=== PATIENT | female | born 1980 | race Caucasian/White ===

== ENCOUNTER 2022-08-31 18:29 | Inpatient (IN) | payer BC ==
[~2022-08-31] VITALS: Ht 160 cm; Wt 72.6 kg
[~2022-08-31 18:29] MED LIST: FENTANYL CITRATE/PF 100MCG/2 ML INJ ONE; MIDAZOLAM HCL 2 MG/2 ML VIAL ONE
[2022-08-31] MEDS ORDERED: POVIDONE IODINE 0.05% 0.05 % ML PO ONE (18:45)
[2022-08-31] MEDS ORDERED: LIDOCAINE HCL 2% LOCAL INJ 5 ML SDV VIAL INJ ONE (18:45)
[2022-08-31] MEDS ORDERED: PROPOFOL IV EMULSION 10 MG/ML 20 ML VIAL ONE (18:45)
[2022-08-31 21:28] VITALS: BP 151/86
[2022-08-31 22:00] VITALS: BP 151/86
[2022-09-01] VITALS (9 sets, daily range): BP systolic 130–149; BP diastolic 75–82
[2022-09-01] MEDS ORDERED: ACETAMINOPHEN-1 EAC4 (02:10)
[2022-09-01] MEDS ORDERED: PANTOPRAZOLE SO40 MG (02:10)
[2022-09-01] MEDS ORDERED: ZOLOFT100 MG PO (02:10)
[2022-09-01] MEDS ORDERED: VALTREX500 MG PO (02:10)
[2022-09-01] MEDS ORDERED: ALPRAZOLAM XR1 MG (02:10)
[2022-09-01] MEDS ORDERED: AMBIEN10 MG PO (02:10)
[2022-09-01] MEDS ORDERED: LYRICA150 MG PO (02:10)
[2022-09-01] MEDS: SODIUM CHLORIDE 0.9% 1000ML 1,000 ML IV SCH ×4 (04:01→20:16)
[2022-09-01 05:34] LABS: BASOPHILS # (AUTO) 0.1 (0.0-0.1); BASOPHILS % 1.4 % (0.0-1.0); EOSINOPHILS # (AUTO) 0.2 (0.0-0.4); EOSINOPHILS % 4.2 % (0.0-6.0); HEMOGLOBIN 9.1 g/dL (12.0-16.0); LYMPHOCYTES # (AUTO) 1.4 (1.0-3.2); LYMPHOCYTES % 28.4 % (18.0-39.1); MEAN CORPUSCULAR HEMOGLOBIN 26.4 pg (28-32); MEAN CORPUSCULAR HGB CONC 30.3 g/dL (31-35); MONOCYTES # (AUTO) 0.5 (0.2-0.8); MONOCYTES % 10.5 % (4.4-11.3); NEUTROPHILS # (AUTO) 2.8 (2.1-6.9); NEUTROPHILS % 55.3 % (38.7-80.0); PLATELET COUNT 252 x10e3/uL (140-360); RED BLOOD COUNT 3.45 x10e6/uL (3.6-5.1); RED CELL DISTRIBUTION WIDTH 14.7 % (11.7-14.4)
[2022-09-01 06:10] LABS: ALBUMIN 3.3 g/dL (3.5-5.0); ALBUMIN/GLOBULIN RATIO 1.3 (0.8-2.0); ANION GAP 12.9 mmol/L (8-16); CALCIUM 8.6 mg/dL (8.4-10.2); CREATININE, SERUM 0.58 mg/dL (0.57-1.11); POTASSIUM 3.9 mmol/L (3.5-5.1)
[2022-09-01] MEDS ORDERED: DIATRIZOATE MEGL/DIATRIZOA SOD 30 ML BTL PO ONE (07:53)
[2022-09-01] MEDS ORDERED: IOPAMIDOL 370 MG/ML 100 ML INFUS..BTL INJ ONE (07:53)
[2022-09-01] MEDS: HYDROMORPHONE 1MG/1ML INJ IV PRN ×5 (09:03→23:47)
[2022-09-01 20:35] LABS: FERRITIN 8.4 ng/mL (4.63-204.00)
[2022-09-02] VITALS (12 sets, daily range): BP systolic 93–146; BP diastolic 64–82
[2022-09-02] MEDS: HYDROMORPHONE 1MG/1ML INJ IV PRN ×6 (04:46→23:57)
[2022-09-02] MEDS: SODIUM CHLORIDE 0.9% 1000ML 1,000 ML IV SCH ×3 (08:53→23:50)
[2022-09-02] MEDS: IRON SUCROSE 100 MG in SODIUM CHLORIDE 0.9% 100 ML IV SCH (08:53)
[2022-09-02] MEDS: SUCRALFATE 1 GM/10 ML SUSP PO SCH ×2 (16:17→20:55)
[2022-09-02] MEDS: METOCLOPRAMIDE HCL 10 MG/2ML VIAL IV SCH ×2 (17:04→23:50)
[2022-09-02] MEDS: ONDANSETRON HCL INJ 2MG/ML 2ML 2 MG/ML VIAL IV PRN ×2 (18:29→20:55)
[2022-09-03] VITALS (7 sets, daily range): BP systolic 110–132; BP diastolic 62–90
[2022-09-03] MEDS: ONDANSETRON HCL INJ 2MG/ML 2ML 2 MG/ML VIAL IV PRN ×2 (04:18→09:40)
[2022-09-03] MEDS: HYDROMORPHONE 1MG/1ML INJ IV PRN ×4 (04:19→15:43)
[2022-09-03] MEDS: METOCLOPRAMIDE HCL 10 MG/2ML VIAL IV SCH ×3 (06:23→17:01)
[2022-09-03] MEDS: SUCRALFATE 1 GM/10 ML SUSP PO SCH ×3 (08:26→15:45)
[2022-09-03] MEDS: DICYCLOMINE HCL 20 MG TAB PO SCH ×3 (08:26→17:01)
[2022-09-03] MEDS: IRON SUCROSE 100 MG in SODIUM CHLORIDE 0.9% 100 ML IV SCH (09:40)
[2022-09-03] MEDS: SODIUM CHLORIDE 0.9% 1000ML 1,000 ML IV SCH ×2 (09:41→15:44)
[2022-09-03 10:26] LABS: WBC,FECAL (FECAL LACTOFERRIN) NEGATIVE (NEGATIVE)
[2022-09-03] MEDS ORDERED: ONDANSETRON ODT4 MG PO (17:54)
[2022-09-03] MEDS ORDERED: PANTOPRAZOLE SO40 MG PO (17:54)
== END 2022-09-03 18:59 | disposition home or self-care (01) | DRG 384 ==
LOC: MED/SURG 20:54 → OBSVTOIN 09-01 10:16
PROC: 0DB78ZX Excision of Stomach, Pylorus, Via Natural or Artificial Opening Endoscopic, Diagnostic (ICD-10-PCS; principal; 2022-09-02 12:47)
DX: K27.9 Peptic ulcer, site unspecified, unspecified as acute or chronic, without hemorrhage or perforation (principal); K56.609 Unspecified intestinal obstruction, unspecified as to partial versus complete obstruction; K31.7 Polyp of stomach and duodenum; K20.90 Esophagitis, unspecified without bleeding; Z98.84 Bariatric surgery status; K29.70 Gastritis, unspecified, without bleeding; D63.8 Anemia in other chronic diseases classified elsewhere; K21.9 Gastro-esophageal reflux disease without esophagitis; K80.50 Calculus of bile duct without cholangitis or cholecystitis without obstruction; E78.5 Hyperlipidemia, unspecified; K52.9 Noninfective gastroenteritis and colitis, unspecified; Z20.822 Contact with and (suspected) exposure to COVID-19
CPT/HCPCS: 36415; 43239; 74177; 74181; 80053; 81025; 82150; 82607; 82728; 82746; 83540; 83630; 83993; 84466; 85025; 85045; 87045; 87177; 87324; 87449; 88304; 88305; 88342; 96360; G0378; J1170; J1756; J2001; J2250; J2405; J2543; J2765; J3010; J7030; J7050; Q9963; Q9967